=== PATIENT | male | born 1960 | race Caucasian/White ===

== ENCOUNTER 2018-10-18 06:32 | Emergency (ER) | payer OTHER ==
[~2018-10-18] VITALS: Ht 177.8 cm; Wt 78.0 kg
[2018-10-18 06:35] VITALS: BP 141/83
--- NOTE | 2018-10-18 06:51 | NUR ---
REPORT GIVEN TO GLEN GUAJARDO
--- NOTE | 2018-10-18 06:52 | NUR ---
BEDSIDE REPORT RECIEVED, PT IN XRAY. REPORT OF PT C/O R SCAPULA PAIN. PIV ESTABLISHED AND FENTANYL GIVEN [employer].
== END 2018-10-18 07:54 | disposition home or self-care (01) ==
LOC: ED 07:16
DX: S29.012A Strain of muscle and tendon of back wall of thorax, initial encounter (principal); E11.9 Type 2 diabetes mellitus without complications; W00.0XXA Fall on same level due to ice and snow, initial encounter; Y93.89 Activity, other specified; Y92.69 Other specified industrial and construction area as the place of occurrence of the external cause; Y99.0 Civilian activity done for income or pay
CPT/HCPCS: 99283